=== PATIENT | female | born 1995 | race African-American/Black ===

== ENCOUNTER 2016-07-13 07:14 | Emergency (ER) | payer OTHER ==
[~2016-07-13] VITALS: Ht 157.5 cm; Wt 50.0 kg
[~2016-07-13 07:14] MED LIST: AUGM500T7 PO; MEDR4PAK PO
[2016-07-13 07:25] VITALS: BP 129/86; PULSE 91; RESP 18; TEMP 98.1; O2SAT 98
--- NOTE | 2016-07-13 07:47 | PD ---
HPI Chief Complaint: Complaint Time Seen by Provider: 07:47 Travel History International Travel<30 days: No Contact w/Intl Traveler<30days: No Traveled to known affect area: No History of Present Illness HPI 21-year-old female came to the emergency room with history of some vaginal discharge that she noticed this morning. Her last menstrual period was June 21. She noticed some spotting a week ago which struck her heart because she usually is very regular with her period. She also noticed some cramps just like her menstrual cramps. No current spotting or bleeding. She said there is a chance of being since she has had unprotected sex. There was a bedside point of care done by the nurse prior to going to see the patient. It was positive. Patient is A1 PFSH Past Medical History Narrative Medical List of her past medical history is reviewed from the nursing note. Medical History: Denies Significant Hx Hx Anticoagulant Therapy: No Cardiovascular Problems: No Chemotherapy: No Cerebrovascular Accident: No Diabetes: No Diminished Hearing: No Respiratory: No Tetanus Vaccination: > 5 Years Influenza Vaccination: No ?: Unknown LMP: 06/2016 Past Surgical History Surgical History: No Previous Surgery Hysterectomy: No Social History Alcohol Use: Yes (OCC) Tobacco Use: Yes (2 BLACK AND MILD/DAY) Substance Use: No Allergies-Medications (Allergen,Severity, Reaction): Coded Allergies: No Known Allergies (Unverified , 07/13/16) Comments No known drug allergies. Reported Meds & Prescriptions Reported Meds & Active Scripts Active Vitamins 0.8 mg ( Multivit-Min W/Fe-FA) 1 Tab Tab 1 Tab PO DAILY Protonix (Pantoprazole Sodium) 40 Mg Tab 40 Mg PO DAILY Narrative Medication List of her medications reviewed from the nursing note. Review of Systems Except as stated in HPI: all other systems reviewed are Neg Physical Exam Narrative GENERAL: Awake, alert, no obvious distress SKIN: Warm and dry. HEAD: Atraumatic. Normocephalic. EYES: Pupils equal and round. No scleral icterus. No injection or drainage. ENT: No nasal bleeding or discharge. Mucous membranes pink and moist. NECK: Trachea midline. No JVD. CARDIOVASCULAR: Regular rate and rhythm. No murmur appreciated. RESPIRATORY: No accessory muscle use. Clear to auscultation. Breath sounds equal bilaterally. GASTROINTESTINAL: Abdomen soft, non-tender, nondistended. Hepatic and splenic margins not palpable. MUSCULOSKELETAL: No obvious deformities. No clubbing. No cyanosis. No edema. NEUROLOGICAL: Awake and alert. No obvious cranial nerve deficits. Motor grossly within normal limits. Normal speech. PSYCHIATRIC: Appropriate mood and affect; insight and judgment normal. Data Data Last Documented VS Vital Signs Date Time Temp Pulse Resp B/P Pulse Ox O2 Delivery O2 Flow Rate FiO2 07/13/16 09:25 87 16 127/88 99 07/13/16 07:25 98.1 Orders Urinalysis - C+S If Indicated (07/13/16 07:53) Labs Laboratory Tests Test 07/13/16 07:55 Urine Color YELLOW Urine Turbidity CLEAR Urine pH 6.0 Urine Specific Elizabeth 1.023 Urine Protein NEG mg/dL Urine Glucose (UA) NEG mg/dL Urine Ketones NEG mg/dL Urine Occult Blood TRACE Urine Nitrite NEG Urine Bilirubin NEG Urine Urobilinogen LESS THAN 2.0 MG/DL Urine Leukocyte Esterase LARGE Urine RBC 4 /hpf Urine WBC 5 /hpf Urine Squamous Epithelial 3 /hpf Cells Urine Bacteria RARE /hpf Urine Mucus FEW /lpf Microscopic Urinalysis Comment CULT NOT INDICATED MDM Medical Decision Making Medical Screen Exam Complete: Yes Emergency Medical Condition: Yes Medical Record Reviewed: Yes Differential Diagnosis Narrative Course 8:46 AM urine analysis is back and seems to be within normal limit. I let the patient know about her . She'll be discharged home. I asked her to call an OB to get an appointment. She will go home on pill prescriptions. She chose not to get a pelvic exam done today. Of asked her to wait for another couple days and see if the discharge gets better or worse in which case she can always return and she is agreed to that. Procedures EKG Prior to Arrival: No Diagnosis Primary Impression: First trimester Referrals: Iris Hayden MD Additional Instructions: Please find an OB for yourselves. There is a name provided to you hear any can call their office to get an appointment for an OB of her choice . Take the pill prescription that's been given to you. Scripts Multivit-Min W/Fe-FA ( Vitamins 0.8 mg)1 Tab Tab1 Tab PO DAILY #30 Prov:Helga Barrera MD 07/13/16 Pantoprazole (Protonix)40 Mg Tab40 Mg PO DAILY #21 TAB Ref 0 Prov:Helga Barrera MD 07/13/16 Disposition: 01 DISCHARGE HOME Condition: Stable Helga Barrera MD Jul 13, 2016 07:47
[2016-07-13 08:15] LABS: BACTERIA, URINE RARE /hpf; BLOOD, URINE TRACE (NEG); COMMENT (UR) CULT NOT INDICATED; CULTURE IF INDICATED CULT NOT INDICATED; GLUCOSE,URINE NEG (NEG); KETONE, URINE NEG (NEG); MUCUS URINE FEW /lpf (OCC); NITRITE,URINE NEG (NEG); SQUAMOUS EPITHELIAL CELL URINE 3 /hpf (0-5); URINE COLOR YELLOW (YELLW/STRAW)
[2016-07-13] MEDS ORDERED: PROT40TA PO (08:15)
[2016-07-13] MEDS ORDERED: PREN1TAB63 PO (08:49)
[2016-07-13 09:25] VITALS: BP 127/88
== END 2016-07-13 09:26 | disposition home or self-care (01) ==
LOC: NEPC 07:14
DX: O26.891 Other specified pregnancy related conditions, first trimester (principal); N89.8 Other specified noninflammatory disorders of vagina; Z72.0 Tobacco use; Z3A.00 Weeks of gestation of pregnancy not specified
CPT/HCPCS: 81001; 99283

== ENCOUNTER 2016-08-04 07:13 | Emergency (ER) | payer OTHER ==
[~2016-08-04] VITALS: Ht 157.5 cm; Wt 50.0 kg
[~2016-08-04 07:13] MED LIST changes: -AUGM500T7 PO; -MEDR4PAK PO; +PREN1TAB63 PO; +PROT40TA PO
[2016-08-04 07:15] VITALS: BP 135/75; PULSE 77; RESP 15; TEMP 98; O2SAT 99
[2016-08-04 07:53] LABS: BACTERIA, URINE RARE /hpf; BLOOD, URINE SMALL (NEG); GLUCOSE,URINE NEG (NEG); HYALINE CAST, URINE 1 /lpf (RARE); KETONE, URINE NEG (NEG); MUCUS URINE MANY /lpf (OCC); NITRITE,URINE NEG (NEG); SQUAMOUS EPITHELIAL CELL URINE 8 /hpf (0-5); URINE COLOR YELLOW (YELLW/STRAW)
[2016-08-04 07:54] LABS: COMMENT (UR) CULT NOT INDICATED; CULTURE IF INDICATED CULT NOT INDICATED
--- NOTE | 2016-08-04 08:37 | PD ---
HPI Chief Complaint: Complaint Time Seen by Provider: 08:21 Travel History International Travel<30 days: No Contact w/Intl Traveler<30days: No Traveled to known affect area: No History of Present Illness HPI 21-year-old female complains of vaginal discharge, vaginal spotting. Patient is about 7 weeks' by date. Patient denies any abdominal pain. Patient denies any dysuria or frequency. Patient denies any back pain. Patient states that she has mild intermittent pelvic cramping. Patient denies any fever chills. PFSH Past Medical History Hx Anticoagulant Therapy: No Cardiovascular Problems: No Chemotherapy: No Cerebrovascular Accident: No Diabetes: No Diminished Hearing: No Respiratory: No ?: LMP: 06/14/16 Past Surgical History Surgical History: No Previous Surgery Hysterectomy: No Social History Alcohol Use: Yes (OCC) Tobacco Use: No (quit) Substance Use: No Allergies-Medications (Allergen,Severity, Reaction): Coded Allergies: No Known Allergies (Unverified , 07/13/16) Reported Meds & Prescriptions Reported Meds & Active Scripts Active Flagyl (Metronidazole) 500 Mg Tab 500 Mg PO TID Vitamins 0.8 mg ( Multivit-Min W/Fe-FA) 1 Tab Tab 1 Tab PO DAILY Review of Systems General / Constitutional: No: Fever Eyes: No: Visual changes HENT: No: Headaches Cardiovascular: No: Chest Pain or Discomfort Respiratory: No: Shortness of Breath Gastrointestinal: No: Abdominal Pain Genitourinary: Positive: Vaginal Bleeding, No: Dysuria Musculoskeletal: No: Pain Skin: No Rash Neurologic: No: Weakness Psychiatric: No: Depression Endocrine: No: Polydipsia Hematologic/Lymphatic: No: Easy Bruising Physical Exam Narrative GENERAL: Well-nourished, well-developed patient. SKIN: Warm and dry. HEAD: Normocephalic. EYES: No scleral icterus. No injection or drainage. NECK: Supple, trachea midline. No JVD or lymphadenopathy. CARDIOVASCULAR: Regular rate and rhythm without murmurs, gallops, or rubs. RESPIRATORY: Breath sounds equal bilaterally. No accessory muscle use. GASTROINTESTINAL: Abdomen soft, non-tender, nondistended. MUSCULOSKELETAL: No cyanosis, or edema. BACK: Nontender without obvious deformity. No CVA tenderness. IT DESKTOP SUPPORT TECHNICIAN exam: Patient has a small amount of whitish discharge in the vaginal vault. No blood in the vaginal vault. The cervix is closed. Uterus mildly enlarged with no tenderness on palpation. No adnexal mass or tenderness. Data Data Last Documented VS Vital Signs Date Time Temp Pulse Resp B/P Pulse Ox O2 Delivery O2 Flow Rate FiO2 08/04/16 07:15 98.0 77 15 135/75 99 Orders Urinalysis - C+S If Indicated (08/04/16 07:23) Gc And Chlamydia Pcr (08/04/16 08:34) Wet Prep Profile (08/04/16 08:34) Complete Rh (08/04/16 08:34) Labs Laboratory Tests Test 08/04/16 08/04/16 07:20 09:11 Urine Color YELLOW Urine Turbidity HAZY Urine pH 6.0 Urine Specific [place] 1.028 Urine Protein TRACE mg/dL Urine Glucose (UA) NEG mg/dL Urine Ketones NEG mg/dL Urine Occult Blood SMALL Urine Nitrite NEG Urine Bilirubin NEG Urine Urobilinogen LESS THAN 2.0 MG/DL Urine Leukocyte Esterase SMALL Urine RBC 3 /hpf Urine WBC 3 /hpf Urine Squamous Epithelial 8 /hpf Cells Urine Bacteria RARE /hpf Urine Hyaline Casts 1 /lpf Urine Mucus MANY /lpf Microscopic Urinalysis Comment CULT NOT INDICATED Clue Cells (Wet Prep) PRESENT Vaginal Trichomonas (Wet Prep) NONE SEEN Vaginal Yeast (Wet Prep) NONE SEEN Blood Type A POSITIVE Rho(D) Type POSITIVE MDM Medical Decision Making Medical Screen Exam Complete: Yes Emergency Medical Condition: Yes Interpretation(s) 10:29 AM. UA negative. Wet prep: Clue cell present. GC chlamydia PCR pending. Blood type A+. Differential Diagnosis Differential diagnosis including bacterial vaginosis, cervicitis, threatened AB , incomplete AB, completed AB, ectopic . Narrative Course 21-year-old female with vaginal discharge and vaginal spotting. Patient's is 7 weeks by date. Procedures Procedure Narrative Emergency Department Pelvic ultrasound was performed with patient consent. The curvilinear probe was used in the transverse and sagittal views within the suprapubic region revealing single intrauterine . Unable to appreciate heart activity Diagnosis Primary Impression: Bacterial vaginosis Additional Impression: Vaginal bleeding in patient at less than 20 weeks gestation Patient Instructions: General Instructions Additional Instructions: Flagyl as directed. Follow-up with local OB. Return if increased vaginal bleeding, increased pelvic abdominal pain. Med/Other Pt SpecificInfo: Prescription(s) given Scripts Metronidazole (Flagyl)500 Mg [id number] Mg PO TID #21 TAB Ref 0 Prov:Adelfo Li MD 08/04/16 Disposition: 01 DISCHARGE HOME Condition: Stable Adelfo Li MD Aug 04, 2016 08:37
[2016-08-04] MEDS ORDERED: METR-1 PO (10:34)
[2016-08-04 11:13] VITALS: BP 120/80
[2016-08-04 12:12] LABS: CHLAMYDIA PCR NOT DETECTED (NOT DETECT); NEISSERIA PCR NOT DETECTED (NOT DETECT)
== END 2016-08-04 11:15 | disposition home or self-care (01) ==
LOC: NEPC 07:13
DX: O23.591 Infection of other part of genital tract in pregnancy, first trimester (principal); N76.0 Acute vaginitis; B96.89 Other specified bacterial agents as the cause of diseases classified elsewhere; Z3A.01 Less than 8 weeks gestation of pregnancy
CPT/HCPCS: 81001; 86901; 87210; 87491; 87591; 99284

== ENCOUNTER 2017-02-09 18:51 | Emergency (ER) | payer MEDICAID, OTHER ==
[~2017-02-09 18:51] MED LIST changes: +METR-1 PO; -PROT40TA PO
--- NOTE | 2017-02-09 20:32 | PD ---
HPI Chief Complaint Vaginal discharge Date Seen: Feb 09, 2017 Time Seen: 20:20 Travel History International Travel<30 Days: No Contact w/Intl Traveler<30Days: No Known Affected Area: No History of Present Illness HPI Primigravida at 34 weeks 1 day gestation who comes with a complaint of 2 weeks of vaginal discharge. She states that she was evaluated by her hand packer/packager and was given medication for a UTI which she completed 1 week ago. She states that the vaginal discharge increased along with increased itching. She denies any leakage of fluid, bleeding or contractions. Weeks Gestation: 34 Para: 0 : 1 History Past Medical History Medical History: Denies Significant Hx Past Surgical History Surgical History: No Previous Surgery Family History Family History: Negative Social History Alcohol Use: No Tobacco Use: No Substance Abuse: No Allergies-Medications (Allergen,Severity, Reaction): Coded Allergies: No Known Allergies (Unverified , 07/13/16) Home Meds Active Scripts Metronidazole (Flagyl) 500 Mg Tab, 500 MG PO TID for Infection, #21 TAB 0 Refills Prov:Adelfo Li MD 08/04/16 Multivit-Min W/Fe-FA ( Vitamins 0.8 mg) 1 Tab Tab, 1 TAB PO DAILY, #30 Prov:Helga Barrera MD 07/13/16 Review of Systems Except as stated in HPI: all other systems reviewed are Neg Physical Exam Narrative GENERAL: Well-nourished, well-developed patient. SKIN: Warm and dry. HEAD: Normocephalic and atraumatic. EYES: No scleral icterus. No injection or drainage. ENT: No nasal drainage noted. Mucous membranes pink. Airway patent. NECK: Supple, trachea midline. No JVD. CARDIOVASCULAR: Regular rate and rhythm without murmurs, gallops, or rubs. RESPIRATORY: Breath sounds equal bilaterally. No accessory muscle use. ABDOMEN/GI: Abdomen soft, non-tender, bowel sounds present, no rebound, no guarding Gravid to [-] weeks size Fundal Height: [-] GENITOURINARY: External Genitalia: intact and normal in appearance BUS glands: [-Greenish white curdy discharge consistent with yeast] Cervix: [-] Dilatation: [Closed-] Effacement: [-] Station: [-] Presentation: [-] Membranes: [intact] Uterine Contractions: [-] FHT's: Category: [-] Baseline: [-] Reactive: [Yes-] Variability: [-] Decels: [-] EXTREMITIES: No cyanosis or edema. BACK: Nontender without obvious deformity. No CVA tenderness. NEUROLOGICAL: Awake and alert. Motor and sensory grossly within normal limits. Five out of 5 muscle strength in all muscle groups. Normal speech. Data Data Vital Signs Reviewed: Yes MDM Medical Record Reviewed: Yes Narrative Course / MDM Assessment: 34 week intrauterine with [place] vaginitis Plan: Terazol 7, followed with care as scheduled. Diagnosis Diagnosis: Primary Impression: 34 weeks gestation of Additional Impression: Yeast vaginitis Disposition: 01 DISCHARGE HOME Neto Dey MD Feb 09, 2017 20:32
== END 2017-02-09 21:10 | disposition home or self-care (01) ==
LOC: HOBED 18:51
DX: O98.813 Other maternal infectious and parasitic diseases complicating pregnancy, third trimester (principal); B37.3 Candidiasis of vulva and vagina
CPT/HCPCS: 59025